=== PATIENT | male | born 1990 | race Caucasian/White ===

== ENCOUNTER 2016-10-14 18:33 | Emergency (ER) | payer SELFPAY ==
[2016-10-14] MEDS ORDERED: PROMETHAZINE HCL 25 MG TABLET PO ONE (18:51)
[2016-10-14] MEDS ORDERED: OXYCODONE-ACETAMINOPHEN 5-325 MG TABLET PO ONE (18:51)
--- NOTE | 2016-10-14 18:51 | ER Document Report ---
ED Medical Screen (RME) - General Chief Complaint: Fever Stated Complaint: FEVER Time Seen by Provider: 10/14/16 18:50 Notes: Patient says she has had a fever for the past couple of days. Temps have been in the range of 100 202. Developed a headache last night and uncontrollable shaking. Headache is primarily in the left frontal region. Does not have a stiff neck. Has not had any vomiting or diarrhea. Denies sore throat. Denies cough or cold or chest congestion. Patient says he is here with his girlfriend who is also being seen who has similar symptoms of fever, though he does not think she has a headache. PMH: ITP, followed in [place]. TRAVEL OUTSIDE OF THE [place] IN LAST 30 DAYS: No Past Medical History - Social History Chew tobacco use (# tins/day): Yes - 1 ppd Frequency of alcohol use: Rare Drug Abuse: None Renal/ Medical History: Denies: Hx Peritoneal Dialysis
[2016-10-14 19:32] LABS: ABSOLUTE BASOPHILS # (AUTO) 0.1 10^3/uL (0.0-0.2); ABSOLUTE EOSINOPHILS # (AUTO) 0.5 10^3/uL (0.0-0.6); ABSOLUTE LYMPHOCYTES (AUTO) 1.4 10^3/uL (0.5-4.7); ABSOLUTE NEUT (AUTO) 8.9 10^3/uL (1.7-8.2); BASOPHILS % (AUTO) 0.5 % (0-2); HEMATOCRIT 42.5 % (37.9-51.0); HGB HCT DIFFERENCE -0.5; LYMPHOCYTES % (AUTO) 11.5 % (13-45); MEAN CORPUSCULAR HEMOGLOBIN 28.1 pg (27.0-33.4); MEAN CORPUSCULAR VOLUME 85 fl (80-97); MONOCYTES % (AUTO) 8.7 % (3-13); RED BLOOD COUNT 4.99 10^6/uL (4.35-5.55); SEGMENTED NEUTROPHILS % (AUTO) 75.3 % (42-78); WHITE BLOOD COUNT 11.8 10^3/uL (4.0-10.5)
[2016-10-14 19:35] LABS: APPEARANCE,URINE CLEAR; BILIRUBIN,URINE NEGATIVE (NEGATIVE); GLUCOSE, URINE NEGATIVE (NEGATIVE); KETONES,URINE NEGATIVE (NEGATIVE); LEUKOCYTE ESTERASE,URINE NEGATIVE (NEGATIVE); NITRITE,URINE NEGATIVE (NEGATIVE); PROTEIN,URINE NEGATIVE (NEGATIVE); URINE SPECIFIC GRAVITY 1.004
[2016-10-14] MEDS ORDERED: NORMAL SALINE 1000 ML 1,000 ML IV ONE (19:41)
[2016-10-14] MEDS ORDERED: DIPHENHYDRAMINE HCL 50 MG/ML VIAL IV ONE (19:41)
[2016-10-14] MEDS ORDERED: KETOROLAC TROMETHAMINE INJ/PF 30 MG/1 ML SDV IV ONE (19:41)
--- NOTE | 2016-10-14 19:43 | ER Document Report ---
ED Fever - General Chief Complaint: Fever Stated Complaint: FEVER Time Seen by Provider: 10/14/16 18:50 Notes: Patient is a 26-year-old male that comes emergency department for chief complaint of fever for the past 2 days, he states last night he developed a headache mainly on the left side of his head that is constant, he denies nausea or vomiting, sore throat, cough, congestion, abdominal pain, flank pain, rash, photophobia, phonophobia. Fevers reaching up to 102 F. He does state that his girlfriend also has a fever but she does not have a headache. He denies recent travel, tick bite. Past medical history of ITP, he is not on any medications for this, he still has his spleen. He denies head injury or history of headaches. Headache is worse with movement of the head, denies neck stiffness. TRAVEL OUTSIDE OF THE [place] IN LAST 30 DAYS: No Past Medical History - General Information source: Patient - Social History Smoking Status: Current Every Day Smoker Chew tobacco use (# tins/day): Yes - 1 ppd Frequency of alcohol use: Rare Drug Abuse: None Lives with: Family Family History: Reviewed & Not Pertinent Patient has suicidal ideation: No Patient has homicidal ideation: No - Medical History Medical History: Negative Renal/ Medical History: Denies: Hx Peritoneal Dialysis Surgical Hx: Negative - Immunizations Immunizations up to date: Yes Hx Diphtheria, Pertussis, Tetanus Vaccination: Yes Review of Systems - Review of Systems Constitutional: See HPI EENT: No symptoms reported Cardiovascular: No symptoms reported Respiratory: No symptoms reported Gastrointestinal: No symptoms reported Genitourinary: No symptoms reported Male Genitourinary: No symptoms reported Musculoskeletal: No symptoms reported Skin: No symptoms reported Hematologic/Lymphatic: No symptoms reported Neurological/Psychological: See HPI Physical Exam - Vital signs Vitals: Temp Pulse Resp BP Pulse Ox 98.8 F 99 18 142/81 H 98 10/14/16 22:14 10/14/16 22:14 10/14/16 22:14 10/14/16 22:14 10/14/16 22:14 Interpretation: Normal - General General appearance: Alert In distress: None - HEENT Head: Normocephalic, Atraumatic Eyes: Normal Conjunctiva: Normal Extraocular movements intact: Yes Eyelashes: Normal Pupils: PERRL Ears: Normal External canal: Normal Tympanic membrane: Normal Sinus: Normal Nasal: Normal Mouth/Lips: Normal Mucous membranes: Normal Pharynx: Normal Neck: Normal. No: Meningismus - Respiratory Respiratory status: No respiratory distress Chest status: Nontender Breath sounds: Normal. No: Decreased air movement, Wheezing Chest palpation: Normal - Cardiovascular Rhythm: Regular. No: Tachycardia Heart sounds: Normal auscultation, S1 appreciated, S2 appreciated Murmur: No - Abdominal Inspection: Normal Distension: No distension Bowel sounds: Normal Tenderness: Nontender. No: Tender, Guarding - Back Back: Normal, Nontender. No: Tender, Vertebra tenderness - no nuchal rigidity, full of UE and LE, normal strength, normal distal N/V exam - Extremities General upper extremity: Normal inspection, Nontender, Normal color, Normal ROM , Normal temperature General lower extremity: Normal inspection, Nontender, Normal color, Normal ROM , Normal temperature, Normal weight bearing. No: Ramya's sign - Neurological Neuro grossly intact: Yes Cognition: Normal Orientation: AAOx4 [place] Coma Scale Eye Opening: Spontaneous [place] Coma Scale Verbal: Oriented [place] Coma Scale Motor: Obeys Commands [place] Coma Scale Total: 15 Speech: Normal Motor strength normal: LUE, RUE, LLE, RLE Sensory: Normal - Psychological Associated symptoms: Normal affect, Normal mood - Skin Skin Temperature: Warm Skin Moisture: Dry Skin Color: Normal Course - Re-evaluation Re-evalutation: Patient still reporting headache after initial triage meds, given toradol and benadryl. Mild leukocytosis with elevation of neutrophils with no shift. Unremarkable labs otherwise. Patient admits to being out in the [place] frequently but does not know of a bite. I discussed meningitis, although patient is well appearing, has no nuchal rigidity, and his significant other is also febrile reportedly ( although without headache). He initially agrees to LP to rule out meningitis. Patient will be given pain medication in preparation for LP. Discussed with Dr. Jennings, recommends strep and mono testing. These are negative. On re-evaluation patient no longer has a headache, he declines an LP. I did discuss that my recommendation is LP and I cannot rule out meningitis which can have life threatening potential but he declines. He states he will return if his headache returns and is severe or if he worsens in any way. Starting on doxycycline for possible RMSF, I asked about testing and patient wants this lab. Patient provided with work excuse, again recommended to return if he worsens in any way. Patient states understanding and agreement. - Vital Signs Vital signs: Temp Pulse Resp BP Pulse Ox 98.8 F 99 18 142/81 H 98 10/14/16 22:14 10/14/16 22:14 10/14/16 22:14 10/14/16 22:14 10/14/16 22:14 - Laboratory Result Diagrams: 10/14/16 19:03 10/14/16 19:03 Laboratory results interpreted by me: 10/14/16 10/14/16 10/14/16 19:03 19:03 19:03 WBC 11.8 H RDW 15.0 H Lymphocytes % 11.5 L Absolute Neutrophils 8.9 H Potassium 3.5 L Chloride 96 L ALT 115 H Urine Urobilinogen 2.0 H Discharge - Discharge Clinical Impression: Fever Qualifiers: Fever type: unspecified Qualified Code(s): R50.9 - Fever, unspecified Headache Qualifiers: Headache type: unspecified Headache chronicity pattern: acute headache Intractability: not intractable Qualified Code(s): R51 - Headache Condition: Stable Disposition: HOME, SELF-CARE Additional Instructions: Please take the doxycycline antibiotic as directed. Take Tylenol for fever, drink plenty of fluids. Return immediately if you worsen in any way including severe headache, stiff neck, rash, vomiting, or any other concerning symptoms. Prescriptions: Doxycycline Hyclate 100 mg PO BID #14 capsule Forms: Return to Work Referrals: VALENTE LEYVA MD [Primary Care Provider] - Follow up as needed
[2016-10-14 19:48] LABS: ALANINE AMINOTRANSFERASE 115 U/L (21-72); ALKALINE PHOSPHATASE 88 U/L (38-126); ANION GAP 12 (5-19); ASPARTATE AMINO TRANSFERASE 23 U/L (17-59); BILIRUBIN,DIRECT 0.4 mg/dL (0.0-0.4); BILIRUBIN,TOTAL 1.2 mg/dL (0.2-1.3); BLOOD UREA NITROGEN 8 mg/dL (7-20); CARBON DIOXIDE 29 mmol/L (22-30); CHLORIDE 96 mmol/L (98-107); CREATININE RESULT 0.72 mg/dL (0.52-1.25); GLUCOSE 106 mg/dL (75-110); POTASSIUM 3.5 mmol/L (3.6-5.0); SODIUM 137.2 mmol/L (137-145); TOTAL PROTEIN 6.8 g/dL (6.3-8.2)
[2016-10-14] MEDS ORDERED: LIDOCAINE 1% INJ-PF (10 MG/ML) 30 ML SDV INJ ONE (20:38)
[2016-10-14] MEDS ORDERED: HYDROMORPHONE HCL INJ/PF 2 MG/ML AMPULE IV ONE (20:39)
[2016-10-14] MEDS ORDERED: DOXYCYCLINE HYCLATE 100 MG TABLET PO ONE (21:54)
[2016-10-14 22:15] VITALS: BP 142/81
[2016-10-19 14:59] LABS: ROCKY MTN SPOTTED FEV IGG EIA Positive (Negative)
== END 2016-10-14 22:14 | disposition home or self-care (01) ==
LOC: ER 18:33
DX: R50.9 Fever, unspecified (principal); R51 Headache; D72.828 Other elevated white blood cell count; Z86.2 Personal history of diseases of the blood and blood-forming organs and certain disorders involving the immune mechanism; F17.210 Nicotine dependence, cigarettes, uncomplicated
CPT/HCPCS: 99284; 96361; 96374; 96375; 36415; 87040; 87070; 87880; 85025; 87077; 86308; 80053; 81001; 86757 ×2; J1200; J3490; J1885; J1170; J7030